=== PATIENT | female | born 1940 | race Two or more races ===

== ENCOUNTER 2022-03-25 16:40 | Emergency (ER) | payer MEDICARE, OTHER ==
[~2022-03-25] VITALS: Ht 147.3 cm; Wt 52.2 kg
--- NOTE | 2022-03-25 16:45 | NUR ---
[facility] 38 [facility], FOUND BY STAFF ON THE FLOOR, W/C BOUND. TO ER BED 9.
--- NOTE | 2022-03-25 17:00 | NUR ---
TO ER BED 9,NAD,AWAITING MD JOSUE
--- NOTE | 2022-03-25 17:50 | NUR ---
PHLEB AT BEDSIDE FOR BLOOD DRAW
[2022-03-25 18:02] LABS: BASOPHILS % (AUTO) 0.4 % (0.0-2.0); HEMATOCRIT 41 % (33-45); HEMOGLOBIN 13.3 g/dL (11.5-14.8); LYMPHOCYTES # (AUTO) 1.1 K/uL (0.8-4.8); LYMPHOCYTES % (AUTO) 9.4 % (20.0-44.0); MEAN CORPUSCULAR HGB CONC 33 g/dl (31.0-36.0); MEAN CORPUSCULAR VOLUME 95 fL (82-100); MONOCYTES # (AUTO) 0.6 K/uL (0.1-1.30); MONOCYTES % (AUTO) 4.7 % (2.0-12.0); NEUTROPHILS # (AUTO) 5.3 K/uL (1.8-8.9); NEUTROPHILS % (AUTO) 43.3 % (43.0-81.0); PLATELET COUNT (AUTO) 327 K/uL (150-450); RED BLOOD CELL COUNT(AUTO) 4.32 MIL/uL (4.0-5.2); WHITE BLOOD COUNT (AUTO) 12.1 K/uL (4.3-11.0)
--- NOTE | 2022-03-25 18:06 | NUR ---
HR BUSINESS PARTNER AT BEDSIDE FOR XRAY
--- NOTE | 2022-03-25 18:18 | NUR ---
PT TAKEN TO RADIOLOGY FOR CT
--- NOTE | 2022-03-25 18:38 | NUR ---
BS 87MG/DL
[2022-03-25 18:56] LABS: ALANINE AMINOTRANSFERASE 12 U/L (12-78); ALBUMIN 2.9 g/dL (3.4-5.0); ALKALINE PHOSPHATASE 156 U/L (46-116); ASPARTATE AMINOTRANSFERASE 22 U/L (15-37); BILIRUBIN,DIRECT 0.1 mg/dL (0.0-0.2); BILIRUBIN,TOTAL 0.3 mg/dL (0.2-1.0); CALCIUM, SERUM 8.7 mg/dL (8.5-10.1); CARBON DIOXIDE 28 mmol/L (21-32); CHLORIDE 105 mmol/L (98-107); CREATININE 0.7 mg/dL (0.6-1.3); GLUCOSE 99 mg/dL (74-106); POTASSIUM 4.5 mmol/L (3.5-5.1); SODIUM SERUM 140 mmol/L (136-145); TOTAL PROTEIN, SERUM 7.2 g/dL (6.4-8.2); UREA NITROGEN, BLOOD 12 mg/dL (7-18)
[2022-03-25 18:59] LABS: EOSINOPHILS % (AUTO) 42.2 % (0.0-6.0)
--- NOTE | 2022-03-25 19:25 | NUR ---
[facility] ETA 1954
--- NOTE | 2022-03-25 19:32 | NUR ---
PT REPORT GIVEN TO JOSH FROST AT [facility] ([phone]).
[2022-03-25 20:08] LABS: BAND % (MANUAL) 4 % (0.0-5.0); EOSINOPHILS % (MANUAL) 36 % (0-4); LYMPHOCYTES % (MANUAL) 10 % (16-48); MONOCYTES % (MANUAL) 3 % (0-11.0); NEUTROPHILS % (MANUAL) 47 (42-76)
--- NOTE | 2022-03-25 20:32 | NUR ---
REPORT GIVEN TO EMS AT BEDSIDE
[2022-03-25 21:01] VITALS: BP 102/59
== END 2022-03-25 21:01 ==
LOC: ER 16:52
DX: R29.6 Repeated falls (principal); R51.9 Headache, unspecified; R41.82 Altered mental status, unspecified; I48.91 Unspecified atrial fibrillation; I50.9 Heart failure, unspecified; J44.9 Chronic obstructive pulmonary disease, unspecified
CPT/HCPCS: 36415; 70450-TC; 71045-TC; 72170-TC; 80048-TC; 80076-TC; 82962-TC; 83880; 84484-TC; 85025-TC